=== PATIENT | female | born 1975 | race Caucasian/White ===

== ENCOUNTER 2016-12-07 12:20 | Emergency (ER) | payer OTHER ==
[2016-12-07 13:34] LABS: URINE BILIRUBIN NEGATIVE (NEGATIVE); URINE BLOOD NEGATIVE (NEGATIVE); URINE COLOR Yellow (YELLOW); URINE GLUCOSE (UA) 1+ mg/dL (Normal); URINE KETONE NEGATIVE (NEGATIVE); URINE LEUKOCYTE ESTERASE NEG Leu/uL (Negative); URINE PROTEIN NEGATIVE (NEGATIVE); WBC URINE 1 /hpf (0-5)
[2016-12-07] MEDS ORDERED: Sodium Chloride 0.9% 1,000 ML IV ONE (13:53)
[2016-12-07] MEDS ORDERED: Sodium Chloride 0.9% 1,000 ML ONE (14:18)
[2016-12-07 14:26] LABS: BASO % 0.6 % (0.0-2.0); EOS % 0.2 % (0.0-4.0); HEMATOCRIT 34.1 % (34.0-47.0); LYMPH # 1.6 K/uL (1.0-4.3); LYMPH % 32.9 % (20.0-40.0); MEAN CELL VOLUME 70.8 fL (81.0-99.0); MEAN CORPUSCULAR HEMOGLOBIN 21.9 pg (27.0-31.0); MEAN CORPUSCULAR HGB CONC 30.9 g/dL (33.0-37.0); MEAN PLATELET VOLUME 9.6 fL (7.2-11.7); MONO # 0.2 K/uL (0.0-0.8); MONO % 4.9 % (0.0-10.0); NRBC % 0.1 % (0.0-2.0); RED CELL DISTRIBUTION WIDTH 15.9 % (11.5-14.5)
[2016-12-07 14:32] LABS: CHLORIDE 104 mmol/L (98-107); POTASSIUM 3.8 mmol/L (3.6-5.2); SODIUM 138 mmol/L (132-148)
[2016-12-07 14:34] LABS: BILIRUBIN,TOTAL 0.5 mg/dL (0.2-1.3); GFR AFRICAN-AMERICAN > 60
[2016-12-07 14:35] LABS: ALB/GLOB RATIO 1.2 (1.0-2.1); ALKALINE PHOSPHATASE 66 U/L (38-126); ALT/SGPT 22 U/L (9-52); AST/SGOT 19 U/L (14-36); BLOOD UREA NITROGEN 7 mg/dL (7-17); CALCIUM 8.6 mg/dl (8.6-10.4); CARBON DIOXIDE 22 mmol/L (22-30); GLUCOSE,RANDOM 158 mg/dL (65-105); TOTAL PROTEIN 6.7 g/dL (6.3-8.3)
--- NOTE | 2016-12-07 14:42 | C.PDOC ---
History Of Present Illness 41 y/o female presents to ED with complaint of right sided abdominal pain onset yesterday. Patient also reports 3 episdoes of vomiting this morning. otherwise, denies fever, chills, dysuria, urinary frequency, diarrhea. Notes normal BM yesterday. Patient states she has had past fibroid surgery but denies any other abdominal surgeries. Notes recent UTI. Time Seen by Provider: 12/07/16 13:15 Chief Complaint (Nursing): Abdominal Pain History Per: Patient History/Exam Limitations: no limitations Onset/Duration Of Symptoms: Days Current Symptoms Are (Timing): Still Present Location Of Pain/Discomfort: RLQ Radiation Of Pain To:: None Quality Of Discomfort: "Pain" Associated Symptoms: denies: Fever, Chills, Nausea, Vomiting, Diarrhea, Urinary Symptoms Recent travel outside of the [place]: No Abnormal Vaginal Bleeding: No Past Medical History Reviewed: Historical Data, Nursing Documentation, Vital Signs Vital Signs: Last Vital Signs Temp 98 F 12/07/16 18:06 Pulse 74 12/07/16 18:06 Resp 18 12/07/16 18:06 BP 106/72 12/07/16 18:06 Pulse Ox 100 12/07/16 18:06 - Medical History PMH: No Chronic Diseases Family History: States: Unknown Family Hx - Social History Hx Alcohol Use: No Hx Substance Use: No - Immunization History Hx Influenza Vaccination: No Review Of Systems Except As Marked, All Systems Reviewed And Found Negative. Constitutional: Negative for: Fever, Chills Cardiovascular: Negative for: Chest Pain Respiratory: Negative for: Cough, Shortness of Breath Gastrointestinal: Positive for: Nausea (resolved), Vomiting (resolved), Abdominal Pain. Negative for: Diarrhea, Constipation Genitourinary: Negative for: Dysuria, Frequency, Hematuria Skin: Negative for: Rash Physical Exam - Physical Exam Appears: Non-toxic, No Acute Distress Skin: Normal Color, Warm, Dry Head: Atraumatic, Normacephalic Eye(s): bilateral: Normal Inspection, EOMI Nose: Normal Oral Mucosa: Moist Neck: Normal ROM, Supple Chest: Symmetrical Cardiovascular: Rhythm Regular Respiratory: Normal Breath Sounds, No Rales, No Rhonchi, No Wheezing Gastrointestinal/Abdominal: Soft, Tenderness (RLQ), No Distention, No Guarding, Rebound Back: No CVA Tenderness Neurological/Psych: Oriented x3, Normal Speech, Normal Cognition ED Course And Treatment - Laboratory Results Result Diagrams: 12/07/16 14:18 12/07/16 14:18 O2 Sat by Pulse Oximetry: 97 (RA) Pulse Ox Interpretation: Normal - CT Scan/US CT ABDOMEN/PELVIS Other Rad Studies (CT/US): Read By Radiologist CT/US Interpretation: Name: BEN VANG Age: 41Years F Date: 12/07/2016. Requesting Physician: Leda Garrison PA-C : 1975. [employer] Procedure Ordered As Accession Number of. Images. CT ABDOMEN/PELVIS. W. CT ABD PELVIS IV CONTRAST. ONLY. [id number]. J. 666. Provided Clinical History: RLQ pain. Page 1 of 2. EXAM: CT Abdomen and Pelvis With Intravenous Contrast. CLINICAL HISTORY: 41 years old, female; Pain; Other: Rlq pain. TECHNIQUE: Axial computed tomography images of the abdomen and pelvis with intravenous contrast. This CT. exam was performed using one or more of the following dose reduction techniques: automated. exposure control, adjustment of the mA and/or kV according to patient size, and/or use of iterative. reconstruction technique. Coronal and sagittal reformatted images were created and reviewed. CONTRAST: 100 mL of visipaque administered intravenously. EXAM DATE/TIME: Exam ordered 12/07/2016 2:31 PM. COMPARISON: No relevant prior studies available. FINDINGS: Lower thorax: No acute findings. ABDOMEN: Liver : Unremarkable. No mass. Gallbladder and bile ducts: The gallbladder appears contracted. No gallstones are seen. No ductal. dilation. Pancreas: Unremarkable. No mass. No ductal dilation. Spleen: Unremarkable. No splenomegaly. Adrenals: Unremarkable. No mass. 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 No hydronephrosis. Stomach and bowel: Unremarkable. No obstruction. No mucosal thickening. Appendix: No findings to suggest acute appendicitis. PELVIS: Bladder: Unremarkable. No mass. Reproductive: Unremarkable as visualized. ABDOMEN and PELVIS: Intraperitoneal space: Unremarkable. No free air. No significant fluid collection. Bones/joints: No acute fracture. No dislocation. Soft tissues: There is a small umbilical hernia containing fat. There is mild diastasis of the rectus. abdominis muscles in the mid abdomen. Vasculature: See above. Lymph nodes: Unremarkable. No enlarged lymph nodes. IMPRESSION: 1. No acute findings. 2. Small umbilical hernia containing fat Progress Note: Treated with Pepcid, Toradol, Zofran, and IVFs. CT abdomen/pelvis , labs ordered and reviewed. CT scan shows no acute findings. On re-evaluation, patient is resting comfortably, in no distress, abdomen is soft, no rebound or guarding, and is tolerating PO. Patient has no signs or symptoms to suggest surgical pathology. Patient was advised to follow up without fail with physician /clinic or to return to the ER for reevaluation in 1-2 days. Disposition - Disposition Referrals: [facility] [Outside] Disposition: HOME/ ROUTINE Disposition Time: 17:57 Condition: STABLE Additional Instructions: Follow up with your primary medical doctor or clinic in 2-5 days for further evaluation. Return to the emergency department at any time if symptoms persist or worsen. Prescriptions: Naproxen [Naprosyn] 1 tab PO BID PRN #20 tab PRN Reason: Pain Ondansetron ODT [Zofran ODT] 1 odt PO BID PRN #6 odt PRN Reason: Nausea/Vomiting Instructions: Acute Abdominal Pain (ED) - Clinical Impression Clinical Impression: Abdominal pain - Scribe Statement The provider has reviewed the documentation as recorded by the Scribmadie Perez
[2016-12-07] MEDS ORDERED: Iodixanol 320 mg/ml 150 ml Bottle IV ONE (16:03)
[2016-12-07 18:07] VITALS: BP 106/72; PULSE 74; RESP 18; TEMP 98
[2016-12-07 18:40] VITALS: O2SAT 97
--- NOTE | 2016-12-08 09:31 | CT ---
PROCEDURE: CT Abdomen and Pelvis with intravenous contrast HISTORY: Right lower quadrant abdominal pain COMPARISON: None. TECHNIQUE: Multiple contiguous axial images were performed through the abdomen and pelvis with intravenous contrast. Subsequently, sagittal and coronal reformatted images were obtained.. Contrast Dose: 100 cc of Visipaque intravenous contrast was administered. Radiation dose: Total exam DLP = 673 mGy-cm. This CT exam was performed using one or more of the following dose reduction techniques: Automated exposure control, adjustment of the mA and/or kV according to patient size, and/or use of iterative reconstruction technique. FINDINGS: LOWER THORAX: Few small focal areas of nodular consolidation seen within the medial right lower lobe. LIVER: Unremarkable. No gross lesion or ductal dilatation. GALLBLADDER AND BILE DUCTS: Contracted gallbladder. This limits evaluation. PANCREAS: Unremarkable. No gross lesion or ductal dilatation. SPLEEN: Unremarkable. ADRENALS: Unremarkable. No mass. 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 Fullness of the right renal collecting system versus a peripelvic cyst. Punctate hypodensity in the upper pole of the right kidney, too small to adequately characterize. VASCULATURE: Unremarkable. No aortic aneurysm. BOWEL: Mild underdistention and or minimal thickening of the right hemicolon. Clinical correlation. APPENDIX: No findings to suggest acute appendicitis. PERITONEUM: Unremarkable. No free fluid. No free air. LYMPH NODES: Unremarkable. No enlarged lymph nodes. BLADDER: Unremarkable. REPRODUCTIVE: Unremarkable. BONES: No acute fracture. OTHER FINDINGS: Small fat containing umbilical hernia. Mild diastases of the rectus abdominis muscles in the mid abdomen. IMPRESSION: Mild underdistention and or minimal thickening of the right hemicolon. Clinical correlation. Small fat containing umbilical hernia. Contracted gallbladder. This limits evaluation. 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 Fullness of the right renal collecting system versus a peripelvic cyst. Punctate hypodensity in the upper pole of the right kidney, too small to adequately characterize. These findings were preliminarily reported at 5:37 p.m. on 12/07/[address] Monica Garcia from [employer].
== END 2016-12-07 18:10 | disposition home or self-care (01) ==
LOC: C.ER 12:20
DX: R10.31 Right lower quadrant pain (principal)
CPT/HCPCS: 74177; 80053; 81001; 83690; 84703; 85025; 87086; 96361; 96374; 96375; 99284; J1885; J2405; J7040; Q9965